=== PATIENT | male | born 1965 | race Caucasian/White ===

== ENCOUNTER 2018-11-15 20:06 | Emergency (ER) | payer SELFPAY ==
[~2018-11-15] VITALS: Ht 172.7 cm; Wt 80.3 kg
[2018-11-15 20:27] VITALS: Ht 172.7 cm; Wt 80.3 kg
[2018-11-15 21:14] LABS: BASOPHIL % 0.6 % (0-2); PLATELET COUNT 236 x10^3mcL (130-400); RED CELL DISTRIBUTION WIDTH 12.6 % (11.5-14.5)
[2018-11-15 21:25] LABS: CALCIUM 8.7 mg/dL (8.5-10.1); CARBON DIOXIDE 31.4 mmol/L (21-32); CHLORIDE SERUM 104 mmol/L (98-107); CREATININE SERUM 0.9 mg/dL (0.7-1.3); GFR1 > 60 mL/min; GLUCOSE SERUM 122 mg/dL (74-106); POTASSIUM SERUM 3.5 mmol/L (3.5-5.1); SODIUM SERUM 140 mmol/L (136-145)
[2018-11-15 21:33] LABS: ALBUMIN 3.4 g/dL (3.4-5.0); ALKALINE PHOSPHATASE 71 U/L (46-116); ALT/SGPT 36 U/L (16-63); AST/SGOT 13 U/L (15-37); BILIRUBIN TOTAL 0.4 mg/dL (0.20-1.00); TOTAL PROTEIN, SERUM 7.6 g/dL (6.4-8.2)
[2018-11-15 22:40] LABS: microscopic required? NO
[2018-11-15 23:03] LABS: UA SPECIFIC GRAVITY 1.025 (1.005-1.035); urine erythrocyte NEGATIVE (NEGATIVE)
[2018-11-15 23:45] VITALS: BP 136/81
== END 2018-11-15 23:45 | disposition home or self-care (01) ==
LOC: ED 20:06
PROVIDERS: Emergency Medicine
DX: R42 Dizziness and giddiness (principal); E86.0 Dehydration
CPT/HCPCS: J7030; Q0092

== ENCOUNTER 2018-11-16 21:32 | Emergency (ER) | payer MEDICAID ==
[~2018-11-16] VITALS: Ht 170.2 cm; Wt 77.1 kg
[2018-11-16 21:46] VITALS: Ht 170.2 cm; Wt 77.1 kg
[2018-11-16 22:47] LABS: BASOPHIL % 1.2 % (0-2); PLATELET COUNT 216 x10^3mcL (130-400); RED CELL DISTRIBUTION WIDTH 12.2 % (11.5-14.5)
[2018-11-16 22:58] LABS: UA SPECIFIC GRAVITY 1.015 (1.005-1.035); microscopic required? YES; urine erythrocyte TRACE (NEGATIVE)
[2018-11-16 23:07] LABS: CALCIUM 9.5 mg/dL (8.5-10.1); CARBON DIOXIDE 23.7 mmol/L (21-32); CHLORIDE SERUM 107 mmol/L (98-107); CREATININE SERUM 0.8 mg/dL (0.7-1.3); GFR1 > 60 mL/min; GLUCOSE SERUM 119 mg/dL (74-106); POTASSIUM SERUM 3.4 mmol/L (3.5-5.1); SODIUM SERUM 142 mmol/L (136-145)
[2018-11-16 23:13] LABS: AMPHETAMINE QUAL UR NONE DETECTED (See below)
[2018-11-16 23:19] LABS: ALBUMIN 3.6 g/dL (3.4-5.0); ALKALINE PHOSPHATASE 65 U/L (46-116); ALT/SGPT 24 U/L (16-63); AST/SGOT 11 U/L (15-37); BILIRUBIN TOTAL 0.51 mg/dL (0.20-1.00); FREE T4 1.06 ng/dL (0.76-1.46); LIPASE 141 IU/L (73-393); TOTAL PROTEIN, SERUM 7.9 g/dL (6.4-8.2)
[2018-11-17 00:41] VITALS: BP 132/74
== END 2018-11-17 00:13 | disposition short-term general hospital (02) ==
LOC: ED 21:32
PROVIDERS: Emergency Medicine
DX: S06.5X0A Traumatic subdural hemorrhage without loss of consciousness, initial encounter (principal); S06.1X0A Traumatic cerebral edema without loss of consciousness, initial encounter; W01.0XXA Fall on same level from slipping, tripping and stumbling without subsequent striking against object, initial encounter; Y93.89 Activity, other specified; Y92.89 Other specified places as the place of occurrence of the external cause; Y99.8 Other external cause status
CPT/HCPCS: 36415; 83880; 84439; G0480